=== PATIENT | male | born 1970 | race Caucasian/White ===

== ENCOUNTER 2017-07-09 06:34 | Emergency (ER) | payer OTHER ==
[~2017-07-09] VITALS: Ht 185.4 cm; Wt 107.5 kg
[2017-07-09 06:39] VITALS: Ht 185.4 cm; Wt 107.5 kg
[2017-07-09] MEDS ORDERED: XYLOCAINE 1%/SOD BICARB 20 ML VIAL INFIL ONE (07:00)
[2017-07-09 07:50] VITALS: BP 135/90; PULSE 66; TEMP 37; O2SAT 97
--- NOTE | 2017-07-09 13:14 | EMERGENCY ROOM VISIT NOTE ---
ED Visit Note First contact with patient: 06:54 Chief Complaint: I cut my right little finger. History of Present Illness: Mr. Rojas is a 46-year-old white male who ambulates into the ED complaining of right little finger laceration. Patient reports approximately 2 hours before he arrived in the emergency department he was at work and accidentally cut his right little finger on a cutting tool at work. He reports prior to coming to Hospital ED control bleeding but did not wash the wound here He denies any associated symptoms with his laceration including pain in the area the laceration, finger weakness/numbness/tingling. Review of Systems: As noted above in history of present illness. Past Medical History: Patient denies. Current Medications: Patient denies. Allergies to Medications: Patient denies. Social History: Patient is currently employed; he feels safe in his home environment; he denies tobacco use. Tetanus Immunization Status: A shunt reports up-to-date. Physical Examination: Vital Signs: Date Time Temp Pulse Resp B/P (MAP) Pulse Ox O2 Delivery O2 Flow Rate FiO2 07/09/17 06:39 37.0 72 18 167/92 97 Room Air GENERAL: 46-year-old male in no acute distress, nontoxic-appearing, afebrile and hemodynamically stable. NEUROLOGICAL: Awake, alert and oriented to person, place and time. Answering questions appropriately and following commands. SKIN: Warm, dry and pink. Right Little Finger: 2.1 cm full-thickness laceration over the dorsal aspect of the finger over the PIP joint. No soft tissue eruptions or trauma noted. RIGHT HAND: Soft tissue injury as noted above under SKIN. No gross bony deformity. Full range of motion in flexion and extension of the fifth MCP, PIP and DIP joint against resistance. Throughout the little finger the skin was warm and pink and capillary refill is brisk. He was able to distinguish light sensations through all dermatomes. ED Course: Patient is assessed as noted above. 's medication list was reviewed. Wound Repair: Complexity: Basic. Verbal consent was obtained after the risks and benefits were explained. The skin was prepped with betadine and a sterile field set. Wound edges of the wound was anesthetized with 1.4 ml buffered 1% lidocaine. The wound was explored for foreign bodies and none found. Copious irrigation was performed using sterile saline. With direct pressure the bleeding subsided. Debridement was not performed. The wound edges were approximated using 5-0 Ethilon with 4 simple interrupted sutures. Hemostasis and excellent approximation was achieved. Antibacterial ointment and a sterile dressing applied. To improve feeling a metal finger splint was placed on the finger. No complications and the patient tolerated the procedure well. Patient was educated about tonight's findings and instructed on his treatment plan; he verbalizes understanding and agreement with this plan. Clinical Impression: Laceration of the right little finger. Work related injury. Disposition: Patient discharged home in stable condition; prior to departure he was reassessed and subjectively reported he was still pain and symptom-free. Plan: Comfort measures, wound care, and signs of infection were discussed with the patient. Patient was encouraged to follow-up with Workmen's Compensation or return to the ED for any signs of infection and/or suture removal in 10-12 days.
== END 2017-07-09 07:55 | disposition home or self-care (01) ==
LOC: C.EDB 06:34
DX: S61.216A Laceration without foreign body of right little finger without damage to nail, initial encounter (principal); W45.8XXA Other foreign body or object entering through skin, initial encounter; Y92.89 Other specified places as the place of occurrence of the external cause; Y99.0 Civilian activity done for income or pay

== ENCOUNTER 2017-09-04 23:08 | Emergency (ER) | payer OTHER ==
[~2017-09-04] VITALS: Ht 182.9 cm; Wt 104.0 kg
[2017-09-04 23:17] VITALS: TEMP 36.7; Ht 182.9 cm; Wt 104.0 kg
[2017-09-04] MEDS ORDERED: OXYCODONE HCL IR 5 MG TAB (IMMEDIATE RELEASE) PO STA (23:38)
[2017-09-04] MEDS ORDERED: OXYC-90 PO (23:44)
[2017-09-04] MEDS ORDERED: OXYCODONE IR HOME PACK PO ONE (23:45)
[2017-09-05 00:20] VITALS: BP 154/91; PULSE 86; O2SAT 97
--- NOTE | 2017-09-05 00:52 | EMERGENCY ROOM VISIT NOTE ---
History Report prepared by Naibdacia: Sanjay Evans Under the Supervision of: Dr. Edwardo Reilly M.D. First contact with patient: 23:23 Chief Complaint: HAND PAIN/INJURY Stated Complaint: R HAND POSSIBLY BROKEN History of Present Illness The patient is a 47 year old male who presents to the Emergency Room with complaints of constant right hand pain that began prior to arrival. He rates his discomfort as a 5/10 in severity. The patient states that he tripped in his basement and went to stop himself from hitting the wall by putting his hands out. He reports that he hit his knuckles against the wall and developed pain after. The patient states that his left pinky finger is painful and his hand is swollen. He denies any numbness, injuring anything else, taking medications, allergies to medications, and breaking bones in the past. Source of History: patient Onset: prior to arrival Position: hand (right) Symptom Intensity: 5/10 Timing: constant Associated Symptoms: No numbness Review of Systems See HPI for pertinent positives and negatives. A total of six systems were reviewed and were otherwise negative. Past Medical & Surgical Medical Problems: (1) Left hand fracture Family History Patient reports no known family medical history. Social History Smoking Status: Never Smoker Marital Status: Housing Status: lives with family Occupation Status: employed Current/Historical Medications Scheduled PRN Oxycodone Ir (Roxicodone Ir), 1-2 TAB PO Q4H PRN for Pain Allergies Coded Allergies: No Known Allergies (Verified , 09/04/17) Physical Exam Vital Signs Date Time Temp Pulse Resp B/P (MAP) Pulse Ox O2 Delivery O2 Flow Rate FiO2 09/05/17 00:20 86 18 154/91 97 Room Air 09/04/17 23:17 36.7 86 18 171/100 99 Room Air Physical Exam GENERAL: Awake, alert, well-appearing, in no distress HENT: Normocephalic, atraumatic. Oropharynx unremarkable. EYES: Normal conjunctiva. Sclera non-icteric. NECK: Supple. No nuchal rigidity. FROM. No JVD. RESPIRATORY: Clear to auscultation. CARDIAC: Regular rate, normal rhythm. Extremities warm and well perfused. Pulses equal. MUSCULOSKELETAL: Chest examination reveals no tenderness. Swelling and tenderness to the ulnar dorsal aspect of the right hand. No open wounds. Remainder of right arm is atraumatic. NEURO: Normal sensorium. No sensory or motor deficits noted. SKIN: No rash or jaundice noted. Medical Decision & Procedures ER Provider Diagnostic Interpretation: X-ray: Per my interpretation, radiologist review. RIGHT HAND X-RAY Right fifth metacarpal fracture Medications Administered Medications (Trade) Dose Ordered Sig/Saad Route Start Time Stop Time Status Last Admin Dose Admin Oxycodone HCl (Roxicodone Immediate Rel 5MG Home Pack) 1 homepack UD ONCE PO 09/04/17 23:45 09/04/17 23:46 DC 09/04/17 23:53 1 HOMEPACK Oxycodone HCl (Roxicodone Immediate Rel Tab) 5 mg NOW STAT PO 09/04/17 23:38 09/04/17 23:40 DC 09/04/17 23:53 5 MG Procedure SPLINTING: Indication: Fracture The injured extremity was identified. The patient was prepped and measured for the placement of a on her daughter orthoglass splint. Splint applied in the standard fashion over a layer of webril and secured using an elastic bandage. Set into a position of function. Normal neurovascular status after placement verified. The patient tolerated the procedure well and the care of the splint was discussed with the patient/family. No complications. ED Course 2331: The patient was evaluated in room C10. A complete history and physical exam was performed. 2338: I reevaluated the patient. Discussed results and discharge instructions: He verbalized understanding and agreement. The patient is ready for discharge. 2328: Ordered Oxycodone HCl 5 mg PO. 2345: Ordered Oxycodone HCl 1 homepack PO. Medical Decision Prior records reviewed and summarized above. Triage Nursing notes reviewed and agree them. Additional history obtained from family. The patient's history was concerning for traumatic injury. Differential diagnosis: Etiologies such as fracture, dislocation, neurovascular compromise, compartment syndrome, soft tissue injury, as well as others were entertained. Physical examination: Consistent with an isolated right hand injury. ER treatment provided: Oxycodone. Icepack Splint Sling on reassessment the patient felt better. Diagnostics interpreted by me: Imaging studies: Xrays as above. Patient has a boxer's fracture from an accidental fall. He will be referred to [facility]. He is neurovascular intact over all dermatomes and myotomes. There are no open wounds. By the evaluation outlined above emergent etiologies such as open fracture, dislocation, neurovascular compromise, compartment syndrome, infections, as well as others were deemed relatively unlikely. The patient and family were informed about the findings as listed above. All questions were answered and they were pleased with the treatment. Return instructions were outlined and the patient was discharged in stable condition. Prescription management: Oxy IR Referral: The patient was referred to [facility] for follow-up care. [place] Drug Monitoring Program Search Results: patient reviewed within database, no issues identified Medication Reconcilliation Current Medication List: was personally reviewed by me Blood Pressure Screening Patient's blood pressure: Elevated blood pressure Blood pressure disposition: Elevated BP felt to be situational Impression Primary Impression: Fracture of fifth metacarpal bone of right hand Scribe Attestation The scribe's documentation has been prepared under my direction and personally reviewed by me in its entirety. I confirm that the note above accurately reflects all work, treatment, procedures, and medical decision making performed by me. Departure Information Dispostion Home / Self-Care Prescriptions Oxycodone Ir (Roxicodone Ir) 5 Mg Tab 1-2 TAB PO Q4H Y for Pain, #15 TAB Prov: Edwardo Reilly MD 09/04/17 Referrals Humberto Ramesh M.D. (PCP) Forms HOME CARE DOCUMENTATION FORM, IMPORTANT VISIT INFORMATION Patient Instructions My [facility] Additional Instructions ORTHOPEDIC INSTRUCTIONS: DO NOT drive, drink alcohol, operate machinery, or perform dangerous activities today. You were given medications in the ER that can affect your ability to safely function or operate a vehicle. Oxycodone (OxyIR) 5mg: Take 1-2 pills every four hours for breakthrough pain. Avoid alcohol, operating machinery or dangerous equipment, working on ladders or roofs, DRIVING, or situations where being under the influence may be dangerous. It is recommended to use an [id number] stool softener such as Colace, 100mg twice daily while taking this medication to avoid constipation. Ibuprofen(Motrin, Advil) may be used for fever or pain. Use 600mg every six hours as needed. Take with food. Avoid using more than 2400mg in a 24 hour period. Do not use 2400mg per day for more than three consecutive days without physician direction. Prolonged inappropriate use can lead to stomach upset or ulcers. (AND/OR) Acetaminophen(Tylenol) may be used for fever or pain. Use 1000mg every six hours as needed. Avoid using more than 4000mg in a 24 hour period. Ice compresses for 20 minutes at a time four times daily for 2-3 days. Use the sling as instructed. Remove your arm from the sling 4-6 times a day and move all the joints around to keep them loose. Rest and elevate your injury. Do not get the splint wet. If your splint feels excessively tight, you have worsening pain, develop numbness or tingling, or your digits appear blue, loosen the claire wrap. Then reapply the claire wrap gently without removing the splint. If your symptoms are not quickly relieved return to the ER for re- evaluation. Return to the ER immediately for any numbness, tingling, severe pain, extreme swelling in the extremity or as needed. Call [facility], [phone], tomorrow to arrange follow up for your injury.
--- NOTE | 2017-09-05 07:23 | DIAGNOSTIC IMAGING REPORT ---
R HAND MIN 3 VIEWS ROUTINE CLINICAL HISTORY: right hand pain, ulnar aspect, trauma COMPARISON: None FINDINGS: Note is made of acute comminuted mildly displaced fracture within the mid to distal shaft of the right fifth metacarpal. There is associated angulation and soft tissue swelling. Widening of the scapholunate interval is noted. Scattered soft tissue calcifications are chronic. IMPRESSION: 1. Acute comminuted mildly displaced fracture with associated angulation of the mid to distal shaft of the right fifth metacarpal. 2. Widening of the scapholunate interval which is likely chronic. Electronically signed by: Jos Mixon M.D. 09/05/2017 7:22 AM Dictated Date/Time: 09/05/2017 7:19 AM
== END 2017-09-05 00:28 | disposition home or self-care (01) ==
LOC: C.EDB 23:10 → C.EDC 09-05 00:28
DX: S62.300A Unspecified fracture of second metacarpal bone, right hand, initial encounter for closed fracture (principal); W01.0XXA Fall on same level from slipping, tripping and stumbling without subsequent striking against object, initial encounter; Z87.81 Personal history of (healed) traumatic fracture